=== PATIENT | male | born 1990 | race Caucasian/White ===

== ENCOUNTER 2016-12-24 23:24 | Emergency (ER) | payer SELFPAY ==
[~2016-12-24] VITALS: Ht 167.6 cm; Wt 63.0 kg
[~2016-12-24 23:24] MED LIST: ALBU1AER INH; HYDR50 PO; LORA1TAB PO; ZOLO20CO PO
[2016-12-24 23:26] VITALS: BP 129/77; PULSE 70; RESP 18; TEMP 97.7; O2SAT 100
[2016-12-25] MEDS ORDERED: CELE40TA PO (00:12)
[2016-12-25] MEDS ORDERED: VIST25CA PO (00:12)
--- NOTE | 2016-12-25 00:12 | PD ---
HPI Chief Complaint: Anxiety Time Seen by Provider: 00:08 Travel History International Travel<30 days: No Contact w/Intl Traveler<30days: No Traveled to known affect area: No History of Present Illness HPI Patient comes in complaining of uncontrolled anxiety over the past 2 days. Patient states that he recently moved back from [place] has not been to get in with a primary care doctor yet. States he ran out of his medications 2 days ago causing his anxiety/panic attacks to start bothering him. Patient states he 's been taking Celexa, Vistaril, and Klonopin. Patient states feels like his heart is racing, face is tingling, occasional shortness of breath similar to previous anxiety/panic attacks. Patient denies any fevers, nausea, vomiting, headache, abdominal pain, tremors, or other concerns. PFSH Past Medical History Anxiety: Yes Depression: Yes Social History Alcohol Use: Yes Tobacco Use: Yes Substance Use: No Allergies-Medications (Allergen,Severity, Reaction): Coded Allergies: Penicillin (Verified Allergy, Mild, RASH, 12/24/16) Reported Meds & Prescriptions Reported Meds & Active Scripts Active Vistaril (Hydroxyzine Pamoate) 25 Mg Cap 25 Mg PO Q6H PRN Celexa (Citalopram Hydrobromide) 40 Mg Tab 40 Mg PO DAILY Review of Systems Except as stated in HPI: all other systems reviewed are Neg Physical Exam Narrative GENERAL: Well-developed, well nourished, in no acute distress, and non-ill appearing. SKIN: Warm and dry. HEAD: Atraumatic. Normocephalic. EYES: Pupils equal and round. EOMI. No scleral icterus. No injection or drainage. ENT: No nasal bleeding or discharge. Mucous membranes pink and moist. NECK: Trachea midline. Supple. No nuclear rigidity. CARDIOVASCULAR: Regular rate and rhythm. No murmur appreciated. RESPIRATORY: No accessory muscle use. No respiratory distress. Clear to auscultation. Breath sounds equal bilaterally. MUSCULOSKELETAL: No obvious deformities. No clubbing. No cyanosis. No edema. Full range of motion. NEUROLOGICAL: Awake and alert. No obvious cranial nerve deficits. Motor grossly within normal limits. Normal speech. PSYCHIATRIC: Appropriate mood and affect; insight and judgment normal. Data Data Last Documented VS Vital Signs Date Time Temp Pulse Resp B/P Pulse Ox O2 Delivery O2 Flow Rate FiO2 12/24/16 23:26 97.7 70 18 129/77 100 Orders Citalopram (Celexa) (12/25/16 00:15) Hydroxyzine Pamoate (Vistaril) (12/25/16 00:15) MDM Medical Decision Making Medical Screen Exam Complete: Yes Emergency Medical Condition: No Differential Diagnosis Anxiety, depression, medication refill, other Narrative Course Patient in no obvious distress upon re-evaluation. Patient was asked if they wanted to speak to my attending, which the patient did not wish to do at this time. Any questions/concerns in reference to patient diagnosis/condition discussed and clarified prior to patient's discharge. Reinforced sheer importance of close follow up with patient's primary physician or primary care clinic or [facility]. Instructed patient to return to ED immediately, if symptoms return/worsen. Pt showed understanding of above instructions. Further instructions and recommendations were detailed in discharge paperwork. Pt ambulated without difficulty out of ED at discharge. Diagnosis Primary Impression: Medication refill Referrals: [facility] Patient Instructions: General Instructions, Medication Refill, ED Additional Instructions: Follow-up with your primary care physician and/or [facility] Peng this week for reevaluation and further refills.. Take all medication as prescribed. Return to the emergency department if symptoms get worse. Med/Other Pt SpecificInfo: Prescription(s) given Scripts Hydroxyzine Pamoate (Vistaril)25 Mg Cap25 Mg PO Q6H PRN (ANXIETY) #30 CAP Ref 0 Prov:Declan Solis MD 12/25/16 Citalopram (Celexa)40 Mg Tab40 Mg PO DAILY #14 TAB Ref 0 Prov:Declan Solis MD 12/25/16 Disposition: 01 DISCHARGE HOME Condition: Stable Marcin Arias Dec 25, 2016 00:11 Marcin Arias Dec 25, 2016 00:11
[2016-12-25] MEDS ORDERED: hydrOXYzine PAMOATE 25 MG CAP PO ONE (00:15)
[2016-12-25] MEDS: CITALOPRAM HYDROBROMIDE 40 MG TAB PO SCH ×2 (00:30→00:40)
== END 2016-12-25 00:41 | disposition home or self-care (01) ==
LOC: NEPB 23:24
DX: F41.0 Panic disorder [episodic paroxysmal anxiety] (principal); Z79.899 Other long term (current) drug therapy; R06.02 Shortness of breath; Z72.0 Tobacco use
CPT/HCPCS: 99283; Q0177